=== PATIENT | female | born 1985 | race Caucasian/White ===

== ENCOUNTER 2021-11-18 08:59 | Emergency (ER) | payer MEDICAID, SELFPAY ==
--- NOTE | ~2021-11-18 | XR_ITS ---
EXAMINATION: XR chest 1V portable DATE: 11/18/2021 10:21 INDICATION: Shortness of breath, cough, dyspnea. TECHNIQUE: A single frontal view of the chest was obtained. COMPARISON: None. FINDINGS: There are patchy airspace opacities in the perihilar regions and lower lung zones. No pleur al effusion or pneumothorax. The heart size is normal. IMPRESSION: 1. Patchy airspace opacities in the perihilar regions and lower lung zones, consistent with COVID-19 pneumonia. Reviewed, dictated and finalized at location A. HEEL BUILDER IMPRESSION: 1. Patchy airspace opacities in the perihilar regions and lower lung zones, con sistent with COVID-19 pneumonia.
[2021-11-18 09:24] VITALS: BP 102/56; PULSE 120; RESP 20; TEMP 36.3; O2SAT 98
--- NOTE | 2021-11-18 10:12 | ECG_ITS ---
Measurements Intervals [place] Rate: 94 P: 28 MT: 145 QRS: 38 QRSD: 98 T: 16 QT: 361 QTc: 454 Interpretive Statements SINUS RHYTHM BASELINE ARTIFACT- I, II, III, AVR, AVL, AVF BORDERLINE ECG Electronically Signed On 11-18-2021 12:27:46 [employer]ALES INSPECTOR by Emmanuel Pearson D.O.
--- NOTE | 2021-11-18 10:15 | ED.SOB ---
HPI - SOB/Dyspnea General Chief Complaint: Shortness of Breath/Dyspnea Stated Complaint: Dyspnea, Covid + on 11/12/21 Time Seen by Provider: 11/18/21 09:49 Source: patient and RN notes reviewed Mode of arrival: ambulatory Limitations: no limitations History of Present Illness HPI Narrative: This is a 36 year old female who presents for evaluation of shortness of breath after being found COVID positive. Patient developed symptoms on 11/11/21 and she was evaluated by a doctor. She reports having positive test for covid. She has come to ER today because she has been short of breath for past 2 days. She is complaining of dizziness and shortness of breath with walking to bathroom. She also reports midsternal chest pain with coughing and walking. She has been taking ibuprofen, Mucinex, DayQuil and NyQuil for her symptoms. She denies nausea, vomiting but she reports a small amount of diarrhea. She has not been vaccinated for covid. Related Data Allergies Allergy/AdvReac Type Severity Reaction Status Date / Time acetaminophen Allergy Hives Verified 11/18/21 09:48 Review of Systems Review of Systems: All systems reviewed & are unremarkable except as noted in HPI and below PMFSH Past Medical History Medical History (Updated 11/18/21 @ 11:44 by Shahla Landon MD) Patient denies medical problems Exam Const: General: alert and ill appearing Orientation/consciousness: patient oriented x3 HENMT: Head: normocephalic and atraumatic Face and sinus: normal facial exam, sinuses nontender and face symmetric Mouth: Yes Normal oral and palatal mucosa present, Yes lip normal, Yes tongue normal, Yes oropharynx normal and Yes moist mucous membranes Eyes: EOM: EOMs intact bilaterally Resp: Effort & Inspection: normal respiratory effort and no retractions Auscultation: clear to auscultation bilaterally Cardio: Rate: tachycardic Rhythm: regular rhythm Heart sounds: no murmurs GI: GI Palp: Yes Soft to palpation, No Tenderness to palpation present (GI) and No Guarding due to palpation present (GI) Auscultation: normal bowel sounds Neuro: General: patient oriented x3, moves all extremities and CN's II-XI intact bilaterally Extrem: General: normal to inspection Psych: Mental Status: mental status grossly normal Affect: normal affect Course Reevaluation(s) Reevaluation #1: Patient was hydrated and given albuterol inhaler. She looks much better. Nursing ambulated patient and she reports patient's oxygen stayed about 95% on room air. I discussed discharge plan and treatment with patient. She denies any additional questions or concerns. Date: 11/18/21 Time: 11:42 Vital Signs Vital signs: Vital Signs Temperature 97.3 F L 11/18/21 09:24 Pulse Rate 120 H 11/18/21 09:24 Respiratory Rate 20 11/18/21 09:24 Blood Pressure 102/56 L 11/18/21 09:24 Pulse Oximetry 98 11/18/21 09:24 Temperature 97.3 F L 11/18/21 09:24 Pulse Rate 86 11/18/21 12:11 Respiratory Rate 18 11/18/21 12:11 Blood Pressure 102/56 L 11/18/21 09:24 Pulse Oximetry 97 11/18/21 12:11 MDM - SOB/Dyspnea Lab Data Attestation: I reviewed the patient's lab results. Result diagrams: 11/18/21 10:23 11/18/21 10:23 Labs: Lab Results 11/18/21 11/18/21 11/18/21 Range/Units 10:23 10:23 10:23 WBC 4.5 (4.5-10.0) K/mm3 RBC 4.78 (4.2-5.4) M/mm3 Hgb 13.8 (12.0-15.0) g/dL Hct 40.7 (37.0-47.0) % MCV 85.1 (80-100) fl MCH 28.9 (26-34) pg MCHC 33.9 (32-36) g/dl RDW 12.4 (11.5-14.5) % Plt Count 115 L (150-375) k/mm3 MPV 11.7 H (7.4-10.4) fl Immature Gran % (Auto) 0.4 (0-0.5) % Neut % (Auto) 83.1 H (45.5-73.1) % Lymph % (Auto) 13.7 L (18.3-44.2) % [place] % (Auto) 2.6 (2.6-8.5) % Eos % (Auto) 0.0 (0-4.4) % Baso % (Auto) 0.2 (0.2-1.2) % Lymph # (Auto) 0.62 L (0.9-3.2) K/mm3 [place] # (Auto) 0.1 (0.1-0.6) K/mm3 Eos # (Auto) 0.0 (0-0.3
[2021-11-18] MEDS: ALBUTEROL SULFATE (*SP) AEROSOL 1 PUFF 2 PUFF INHALATION (10:19)
[2021-11-18] MEDS: SODIUM CHLORIDE 0.9% IV 1,000 ML 999 ML IV CONT (10:22)
[2021-11-18 10:34] LABS: Basophils Percent Auto 0.2 % (0.2-1.2); Hematocrit 40.7 % (37.0-47.0); Hemoglobin 13.8 g/dL (12.0-15.0); Immature Granulocyte Absolute 0.02 K/mm3 (0.00-0.031); Immature Granulocyte Percent A 0.4 % (0-0.5); Lymphocytes Absolute Auto 0.62 K/mm3 (0.9-3.2); Lymphocytes Percent Auto 13.7 % (18.3-44.2); Mean Corpuscular HGB Conc 33.9 g/dl (32-36); Mean Corpuscular Hemoglobin 28.9 pg (26-34); Mean Corpuscular Volume 85.1 fl (80-100); Mean Platelet Volume 11.7 fl (7.4-10.4); Monocytes Absolute Auto 0.1 K/mm3 (0.1-0.6); Monocytes Percent Auto 2.6 % (2.6-8.5); Neutrophils Absolute Auto 3.8 K/mm3 (1.3-6.7); Neutrophils Percent Auto 83.1 % (45.5-73.1); Platelet Count Result 115 k/mm3 (150-375); Red Blood Count 4.78 M/mm3 (4.2-5.4); Red Cell Distribution Width 12.4 % (11.5-14.5); White Blood Count 4.5 K/mm3 (4.5-10.0)
[2021-11-18 10:41] LABS: Prothrombin Time 12.9 Seconds (11.1-14.7)
[2021-11-18 10:42] LABS: Partial Thromboplastin Time 32.7 SECONDS (22.3-36.8)
[2021-11-18 10:44] LABS: D Dimer 0.33 ug/mL (<0.48)
[2021-11-18 10:46] LABS: Alanine Aminotransferase 86 U/L (4-35); Albumin Level 3.9 g/dL (3.5-5.1); Alkaline Phosphatase 98 U/L (38-126); Anion Gap 9 mmol/L (8-16); Aspartate Amino Transferase 103 U/L (14-36); Bilirubin,Total 0.5 mg/dL (0.2-1.3); Blood Urea Nitrogen 11 mg/dL (7-17); CRP 5.3 mg/dL (<1.0); Calcium 8.7 mg/dL (8.4-10.2); Carbon Dioxide 24 mmol/L (22-30); Chloride 101 mmol/L (98-107); Estimated CRCL calculation 80 ml/min; Estimated Glomerular Filt Rate > 60; Glucose 113 mg/dL (65-110); Magnesium 1.9 mg/dL (1.6-2.3); Potassium 3.8 mmol/L (3.4-5.0); Sodium 134 mmol/L (137-145)
[2021-11-18 10:55] LABS: Troponin I < 0.012 ng/mL (0.000-0.034)
[2021-11-18 11:02] LABS: Alveolar/Arterial O2 Gradient 43.3 mmHg; Base Excess ABG -3.7 mEq/l (+/-2.0); Carboxyhemoglobin 0.3 % THb (0-2.0); Device ROOM AIR; Fractional Inspired Oxygen 21 %; Methemoglobin ABG 0.2 %THb (0-1.5); Oxygen Content ABG 17.4 %vol (16.0-22.0); Oxyhemoglobin 92.5 % THb (90.0-100.0); PCO2 ABG 32.1 mmHg (35.0-45.0); PO2 FiO2 Ratio Arterial Blood 3.24 %; Site Drawn RIGHT BRACHIAL; Total Hemoglobin 13.4 g/dL (12.0-18.0); pH ABG 7.412 (7.350-7.450)
--- NOTE | 2021-11-18 11:25 | PC.NURSE ---
Patient ambulated around her ED room with pulse ox and content writer. Patient walked without difficulty. Starting pulse ox reading at bedside was 95% upon standing and walking her pulse ox increased to 98%. Patient sat back on stretcher into a position of comfort.
[2021-11-18 12:11] VITALS: PULSE 86; RESP 18; O2SAT 97
== END 2021-11-18 12:07 | disposition home or self-care (01) ==
PROVIDERS: Emergency Provider General Practice; PCP Family Medicine
DX: U07.1 COVID-19 (principal); J12.82 Pneumonia due to coronavirus disease 2019; R94.31 Abnormal electrocardiogram [ECG] [EKG]
CPT/HCPCS: 36415; 36600; 71045; 80053; 82375; 82805; 83050; 83735; 84484; 85025; 85055; 85380; 85610; 85730; 86140; 93005; 96360; 99284; A9270; J7030